=== PATIENT | female | born 1965 | race Caucasian/White ===

== ENCOUNTER 2018-04-01 13:34 | Outpatient (CLI) | payer OTHER | END 2018-04-01 13:35 | disposition home or self-care (01) | LOC: DTY/OP 13:34 | PROVIDERS: ATTEND Family Medicine | DX: E66.3 Overweight (principal) | CPT/HCPCS: 97802 ==

== ENCOUNTER 2018-11-03 17:01 | Outpatient (CLI) | payer BC ==
--- NOTE | 2018-11-03 17:26 | RAD ---
LEFT ANKLE RADIOGRAPHS THREE VIEWS: 11/03/18 PROVIDED CLINICAL HISTORY: Left ankle pain status post injury. FINDINGS: There is no evidence for fracture or other acute osseous abnormality. Plantar calcaneal enthesophyte formation is noted. Alignment appears anatomic. Joint spaces appears preserved. IMPRESSION: No evidence for an acute osseous abnormality. If there is persistent clinical concern, conservative m anagement and followup imaging are advised. POS: ESAU
== END 2018-11-03 17:02 | disposition home or self-care (01) ==
LOC: SCSRAD 17:01
PROVIDERS: ATTEND Family Medicine
DX: M25.572 Pain in left ankle and joints of left foot (principal)

== ENCOUNTER 2019-01-23 20:50 | Inpatient (IN) | payer BC ==
[2019-01-23 21:14] LABS: #Basophils 0.2 thou/uL (0.0-0.2); #Eosinphils 0.2 thou/uL (0.0-0.7); #Lymphocytes 2.8 thou/uL (1.20-3.40); #Monocytes 0.8 thou/uL (0.11-0.59); #Neutrophils 4.9 thou/uL (1.40-6.50); %Eosinophils 2.2 % (0.0-10.0); %Lymphocytes 31.5 % (21.0-51.0); %Monocytes 8.9 % (0.0-10.0); %Neutrophils 55.3 % (42.0-75.0); Hemoglobin 13.3 g/dL (12.0-16.0); Mean Corpuscular HGB CONC 33.7 g/dL (32.0-36.0); Mean Platelet Volume 7.4 fL (7.4-10.4); Platelet Count 248 thou/uL (130-400); RBC Distribution Width 12.7 % (11.5-14.5); Red Blood Cell (RBC) Count 4.61 mill/uL (4.20-5.40); White Blood Cell (WBC) Count 8.9 thou/uL (4.8-10.8)
[2019-01-23 21:29] LABS: ALT (SGPT) 702 U/L (8-55); AST (SGOT) 408 U/L (5-34); Albumin 4.2 g/dL (3.5-5.0); Alkaline Phosphatase 396 U/L (40-150); Anion Gap 13 mmol/L (10-20); BUN (Urea Nitrogen) 14 mg/dL (9.8-20.1); Bilirubin, Total 1.5 mg/dL (0.2-1.2); Calc. Creatinine Clearance 0 mL/min (70-130); Calcium 10.1 mg/dL (7.8-10.44); Carbon Dioxide 26 mmol/L (22-29); Chloride 104 mmol/L (98-107); Estimated GFR-MDRD 75; Globulin 3.2 g/dL (2.4-3.5); Glucose 113 mg/dL (70-105); Lipase 18 U/L (8-78); Potassium 4.3 mmol/L (3.5-5.1); Protein, Total 7.4 g/dL (6.0-8.3); Sodium 139 mmol/L (136-145)
[2019-01-23] MEDS ORDERED: Lidocaine Viscous Sol 2% 15 ml UD Cup ONE (21:31)
[2019-01-23] MEDS ORDERED: Famotidine/PF 20 mg/2ml Vial ONE (21:31)
[2019-01-23] MEDS ORDERED: Mag-Al Plus 1200 MG/1200 MG/120 MG/30 ML UDCUP ONE (21:31)
--- NOTE | 2019-01-23 22:43 | ULT ---
Right upper quadrant ultrasound: 01/23/2019 COMPARISON: None HISTORY: Pain, elevated liver function tests TECHNIQUE: Multiplanar grayscale sonographic imaging of the right upper quadrant provided. FINDINGS: Imaged pancreas grossly unremarkable. Body and tail obscured by bowel gas. Mild intrahepatic biliary dilatation is suspected. Multiple echogenic foci within the gallbladder not ed, evidence of cholelithiasis. No gallbladder wall thickening or pericholecystic fluid. The common bile duct is dilated, measuring approximately 8 mm. The right kidney measures 13 cm in craniocaudal d imension and demonstrates no stone, hydronephrosis, or mass. The lead welder reports a negative Wing's sign. IMPRESSION: Intrahepatic and extrahepatic biliary dilatation with cholelithiasis noted. No sonographi c evidence of cholecystitis. Findings are suspicious for biliary obstruction, which could be on the basis of nonvisualized choledocholithiasis. GI consultation suggested.
[2019-01-23] MEDS ORDERED: Piperacillin/Tazobactam 3.375 GM VIAL ONE ×2 (23:20→23:26)
[2019-01-23] MEDS ORDERED: Sodium Chloride 0.9% 100 ML ONE ×2 (23:20→23:26)
[2019-01-24] MEDS ORDERED: Ondansetron PF 4 MG/2 ML Vial IVP PRN ×2 (00:18→07:56)
[2019-01-24] MEDS ORDERED: Dextrose 5 %-0.45 % NaCl 1,000 ML IV SCH (00:18)
[2019-01-24 00:33] VITALS: BMI 37.0
[2019-01-24] MEDS: Morphine 2 MG/ML SYRINGE SLOW IVP PRN ×2 (01:31→06:04)
[2019-01-24 05:52] LABS: #Basophils 0.1 thou/uL (0.0-0.2); #Eosinphils 0.2 thou/uL (0.0-0.7); #Lymphocytes 2.5 thou/uL (1.20-3.40); #Monocytes 0.7 thou/uL (0.11-0.59); #Neutrophils 2.8 thou/uL (1.40-6.50); %Basophils 1.5 % (0.0-1.0); %Lymphocytes 39.7 % (21.0-51.0); %Monocytes 11.5 % (0.0-10.0); %Neutrophils 44.2 % (42.0-75.0); Hemoglobin 12.8 g/dL (12.0-16.0); Mean Corpuscular HGB CONC 32.6 g/dL (32.0-36.0); Mean Corpuscular Hemoglobin 28.9 pg (27.0-31.0); Mean Corpuscular Volume 88.7 fL (78.0-98.0); Mean Platelet Volume 7.7 fL (7.4-10.4); Platelet Count 232 thou/uL (130-400); RBC Distribution Width 12.6 % (11.5-14.5); Red Blood Cell (RBC) Count 4.44 mill/uL (4.20-5.40); White Blood Cell (WBC) Count 6.2 thou/uL (4.8-10.8)
[2019-01-24] MEDS ORDERED: Piperacillin/Tazobactam 3.375 GM in Sodium Chloride 0.9% 100 ML IVPB SCH (06:00)
[2019-01-24 06:21] LABS: ALT (SGPT) 856 U/L (8-55); AST (SGOT) 635 U/L (5-34); Albumin 3.9 g/dL (3.5-5.0); Alkaline Phosphatase 379 U/L (40-150); Anion Gap 12 mmol/L (10-20); BUN (Urea Nitrogen) 11 mg/dL (9.8-20.1); Bilirubin, Total 1.9 mg/dL (0.2-1.2); Calc. Creatinine Clearance 138 mL/min (70-130); Calcium 9.6 mg/dL (7.8-10.44); Carbon Dioxide 26 mmol/L (22-29); Chloride 106 mmol/L (98-107); Estimated GFR-MDRD 77; Glucose 120 mg/dL (70-105); Lipase 9 U/L (8-78); Protein, Total 6.9 g/dL (6.0-8.3); Sodium 140 mmol/L (136-145)
[2019-01-24] MEDS ORDERED: Morphine 4 MG/ML VIAL SLOW IVP PRN (07:57)
[2019-01-24] MEDS ORDERED: Morphine 2 MG/ML SYRINGE SLOW IVP PRN (08:38)
[2019-01-24] MEDS: D5 1/2 NS w/20 mEq KCL 1,000 ML IV SCH ×2 (09:50→18:52)
[2019-01-24] MEDS ORDERED: Fentanyl 100 MCG/2 ML VIAL ONE (11:32)
[2019-01-24] MEDS: Piperacillin/Tazobactam 3.375 GM in Sodium Chloride 0.9% 100 ML IVPB SCH ×2 (12:03→18:52)
[2019-01-24] MEDS ORDERED: Indomethacin 50 MG SUPP PR SCH (12:30)
[2019-01-24] MEDS ORDERED: Piperacillin/Tazobactam 3.375 GM VIAL ONE (12:33)
[2019-01-24] MEDS ORDERED: Sodium Chloride 0.9% 100 ML ONE (12:33)
[2019-01-24] MEDS ORDERED: Iothalamate Meglumine 60% 50 ML VIAL FS ONE (14:22)
[2019-01-24] MEDS ORDERED: Indomethacin 50 MG SUPP ONE (14:22)
--- NOTE | 2019-01-24 16:02 | CON ---
DATE OF CONSULTATION: 01/24/2019 REASON FOR CONSULTATION: Choledocholithiasis. CONSULTING PHYSICIAN: Jeremias Gilliam MD HISTORY OF PRESENT ILLNESS: The patient is a 53-year-old female with past medical history of impaired fasting glucose, hypothyroidism, hyperlipidemia, and hypertension, presenting with complaints of midepigastric abdominal pain. She states that she was in her usual state of health until approximately 2 weeks ago when she began to have intermittent occurrences of a cramping/pressure-type pain located in the midepigastrium, would radiate to the lower substernal chest in addition to the just to right and left of midline in the epigastrium. The pain was intermittent and would occur roughly 1 to 2 times per day and would usually occur within 30 to 45 minutes after meal ingestion, and follow a crescendo-decrescendo pattern. The pain itself would reach a severity of 8 to 9/10 and was associated with increased nausea and vomiting x3 over the last week. Otherwise, she denied any fevers, chills, GI bleeding, dysphagia, odynophagia, abdominal distention/abdominal swelling or lower extremity edema. However, yesterday when the pain returns in the morning, it did not freddie like it had been in the past, prompting her to seek healthcare admission in the [facility] ER. While in the ER, she was noted to have significantly elevated LFTs as well as dilation of her common bile duct suspicious for choledocholithiasis and was ultimately admitted to the hospital for evaluation. REVIEW OF SYSTEMS: A 10-category review of systems was obtained with all responses negative, except for the pertinent positives as listed in HPI. PAST MEDICAL HISTORY: As per HPI. PAST SURGICAL HISTORY: Appendectomy, , and hysterectomy. FAMILY HISTORY: Denies any GI malignancies. SOCIAL HISTORY: Denies any tobacco, alcohol, or illicit drug use. OUTPATIENT MEDICATIONS: Reviewed. ALLERGIES: NO KNOWN DRUG ALLERGIES. PHYSICAL EXAMINATION: VITAL SIGNS: Temperature 97.6, pulse 46, blood pressure 112/72, respiratory rate 14, saturating 97% on room air. GENERAL: The patient was lying in bed, in no acute distress. Alert and oriented x4. HEENT: Normocephalic, atraumatic. NECK: Supple. No JVD or scleral icterus noted. CARDIOVASCULAR: Bradycardic rate, but regular rhythm. No discernible murmurs, gallops, or rubs. RESPIRATORY: Clear to auscultation bilaterally with no discernible wheezes or rales. ABDOMEN: Normoactive bowel sounds. Soft, nondistended. Tenderness to palpation in the midepigastric and periumbilical regions. EXTREMITIES: No cyanosis, clubbing, or edema. LABORATORY DATA: CBC with a white blood cell count of 6.2, hemoglobin 12.8, hematocrit 39.3, platelets 232. Chemistry with a sodium of 140, potassium 4, chloride 106, CO2 of 26, BUN 11, creatinine 0.79, glucose 120, AST 635, ALT 856, alkaline phosphatase 379, and total bilirubin 1.9. IMAGING DATA: Right upper quadrant ultrasound was obtained on January 23, 2019, which showed mild intrahepatic dilation as well as dilation of the common bile duct to 8 mm in size. Multiple gallstones were seen within the gallbladder, but no evidence of acute cholecystitis. ASSESSMENT AND PLAN: The patient is a 53-year-old female, presenting with past medical history of impaired fasting glucose, hypothyroidism, hyperlipidemia, and hypertension, presenting with choledocholithiasis. Choledocholithiasis: The patient is presenting with the acute onset of midepigastric abdominal pain that has been intermittently occurring over the last two weeks. However, yesterday she experienced the pain and it had not abated until being evaluated here at . On evaluation, the patient has an obstructive-type pattern on her LFTs and when coupled with intra and extrahepatic dilatation, is consistent with the presence of choledocholithiasis. RECOMMENDATIONS: 1. Would keep the patient n.p.o. in anticipation for ERCP later today. 2. We will perform ERCP later for stone extraction. 3. Would recommend General Surgery evaluation and cholecystectomy during this admission, if choledocholithiasis is present. 4. Pain control per primary team. Further recommendations to follow ERCP. Please call with any questions. Job ID: [id number]
--- NOTE | 2019-01-24 16:11 | RAD ---
2 intraoperative ERCP images. HISTORY: Cholelithiasis. FINDINGS: Catheterization and injection of the common bile duct performed. No definite evidence of biliary lesi ons or evidence of definite obstruction seen. No evidence of intrahepatic biliary dilatation seen. IMPRESSION: No evidence of intrahepatic biliary dilatation or obstruction seen. Transcribed Date/Time: 01/24/2019 4:16 PM
[2019-01-24] MEDS ORDERED: Rocuronium Bromide 10 MG/ML (10ML VIAL) ONE (16:33)
[2019-01-24] MEDS ORDERED: Ondansetron PF 4 MG/2 ML Vial ONE (16:33)
[2019-01-24] MEDS ORDERED: Dexamethasone 20 MG/5 ML VIAL ONE (16:33)
[2019-01-24] MEDS ORDERED: PROPOFOL 200 MG/20 ML VIAL ONE (16:33)
[2019-01-24] MEDS ORDERED: Lidocaine 1% PF 5 ML VIAL ONE (16:33)
[2019-01-24] MEDS ORDERED: Glycopyrrolate 0.2 MG/ML 5 ML SYRINGE ONE (16:33)
--- NOTE | 2019-01-24 16:41 | HP ---
CHIEF COMPLAINT: Abdominal pain. HISTORY: Ms. Betancourt is a 53-year-old woman who presented to the ER with a 2-week history of abdominal pain, which became unrelenting yesterday. She states that she had attributed it to changes in her diet and activities and that the pain was in the epigastrium and was crampy in nature. Yesterday, it came on and it would not go away. She had nausea and vomiting associated with the pain, but no fevers or chills. She is still having pain this morning, although it is decreased in intensity. It waxes and wanes in severity. The pain has not been clearly correlated with diet activities or time of day. Nothing that she has tried to relieve the pain has helped. PAST MEDICAL HISTORY: Hypothyroidism, prediabetes, hyperlipidemia. Hypertension resolved after diet and activity changes and weight loss. OUTPATIENT MEDICATIONS: 1. Atorvastatin. 2. . 3. Levothyroxine. 4. Montelukast. 5. Centrum Silver. PAST SURGICAL HISTORY: Multiple C-sections, hysterectomy with incidental appendectomy. SOCIAL HISTORY: The patient does not smoke, drink, or use illicit. DRUGS ALLERGIES: She has no known drug allergies. REVIEW OF SYSTEMS: Ten system review of systems is negative except per HPI. PHYSICAL EXAMINATION: VITAL SIGNS: The patient has been afebrile since admission. Heart rate is in the 45-65 range, respiratory rate 14, 97% saturated on room air, blood pressure 112/72. GENERAL: Reveals a pleasant woman, in no acute distress. She is not jaundiced or icteric. She is not flushed or toxic in appearance. HEENT: Unremarkable except for thyromegaly without any palpable nodules. No lymphadenopathy. HEART: Regular in its rate and rhythm without murmurs, rubs, or gallops. LUNGS: Clear to auscultation bilaterally. ABDOMEN: Soft and nondistended. She has a healed Pfannenstiel incision. No palpable masses or hernias. Mild tenderness to palpation just to the right of the epigastrium. No guarding, rigidity, or rebound. EXTREMITIES: Warm, well perfused without edema. NEURO: No focal deficits. PSYCHIATRIC: Alert, oriented and appropriate. IMAGING: Gallbladder ultrasound revealed intra and extrahepatic biliary dilatation, stones in the gallbladder, but no gallbladder wall thickening or pericholecystic fluid and no Wing sign. LABORATORY DATA: White count is normal. No left shift. Hematocrit 39, platelets 232. Electrolytes are unremarkable. Bilirubin is 1.9, AST 635, ALT 856, and alkaline phosphatase 379. Bilirubin, AST and ALT have all gone up overnight. ASSESSMENT: Cholelithiasis and likely choledocholithiasis. I have consulted Dr. Rogers of Gastroenterology to evaluate the patient as she may need a preoperative endoscopic retrograde cholangiopancreatography and if he decides to proceed with Endoscopic retrograde cholangiopancreatography today I will put her on the schedule for laparoscopic cholecystectomy tomorrow. The procedure of laparoscopic cholecystectomy and its inherent risks were discussed with the patient and her . Each risks include, but are not limited to bleeding, infection, risks of anesthesia, damage to nearby structures including bowel, liver and bile duct, need for open surgery, and need for other procedures. They understand and accept these risks and wished to proceed. I will await Dr. Rogers's evaluation. Job ID: [id number]
[2019-01-24] MEDS ORDERED: Atropine Sulfate 1 mg/10 ml Syringe ONE (16:59)
[2019-01-24] MEDS ORDERED: Atropine Sulfate 1 mg/10 ml Syringe IVP PRN (18:40)
[2019-01-24 20:02] LABS: Free T4 (Free Thyroxine) 1.17 ng/dL (0.70-1.48)
--- NOTE | 2019-01-24 22:17 | OP ---
DATE OF PROCEDURE: 01/24/2019 PROCEDURE PERFORMED: Endoscopic retrograde cholangiopancreatography with sphincterotomy and biliary calculi extraction. INDICATION FOR PROCEDURE: Choledocholithiasis. DESCRIPTION OF PROCEDURE: After the risks and benefits of the procedure were explained to the patient including risks of bleeding, infection, perforation, reactions to anesthesia, aspiration, pancreatitis and/or pain, informed consent was obtained. The patient was then taken to the endoscopy suite, where general anesthesia was administered with endotracheal tube intubation. Once the patient was intubated and sedated she was maneuvered into the prone position in preparation for the ERCP. Once in adequate position and with the fluoroscopy arm in place, the standard duodenoscope was introduced into the mouth with intubation of the esophagus, stomach, and the proximal small intestine with the findings listed below. The patient tolerated the procedure well with no immediate perioperative complications. Upon completion of the procedure, all equipment was removed from the patient and she was transferred to PACU in satisfactory condition. ESOPHAGOGASTRODUODENOSCOPY FINDINGS: Of the limited views obtained during the EGD portion of this examination, normal-appearing mucosa was seen in the esophagus, stomach, and the proximal small intestines. There was no evidence of erosions, ulcerations, mass, lesions, or active/recent bleeding. ENDOSCOPIC RETROGRADE CHOLANGIOPANCREATOGRAPHY FINDINGS: The ampulla was easily identified within the second portion of the duodenum with no associated erythema, purulence or ulceration. Using a 5 mm sphincterotome, the ampulla was then cannulated with installation of contrast dye showing filling defects within the distal common bile duct. Using the sphincterotome, a sphincterotomy was then performed with good hemostasis achieved at the end of this maneuver. During the course of the sphincterotomy, a 4 mm yellow pigmented stone was extruded from the common bile duct. Once the sphincterotomy was completed, the sphincterotome was exchanged for a 9 to 12 mm balloon using exchange technique over guidewire. Once the balloon was in adequate position, multiple successive balloon sweeps were performed at both 9 mm and 12 mm with another 3-4 mm yellow pigmented stone extracted as well as numerous bits of stone debris measuring approximately 1 mm in size. At the conclusion of the procedure, an occlusion cholangiogram was performed with good filling of the common bile duct, common hepatic, cystic duct and intrahepatic biliary tree and good drainage noted also on fluoroscopy. All equipment was then withdrawn with removal of the duodenoscope. IMPRESSION: 1. Choledocholithiasis with two 3-4 mm yellow pigmented stones extracted status post sphincterotomy and balloon extraction. 2. Multiple 1 mm yellow pigmented debris/stones also retrieved. RECOMMENDATIONS: 1. I would continue to trend the patient's LFTs tomorrow to monitor her response to treatment. 2. Continue to monitor clinically for signs of post ERCP pancreatitis. 3. Can place the patient on a clear liquid diet today, but would be n.p.o. at midnight in preparation for cholecystectomy tomorrow. 4. Recommend cholecystectomy within this hospitalization to prevent any further recurrences of choledocholithiasis. We will continue to follow. Please call with any questions. Job ID: [id number]
[2019-01-25] MEDS: Piperacillin/Tazobactam 3.375 GM in Sodium Chloride 0.9% 100 ML IVPB SCH ×6 (00:30→23:52)
--- NOTE | 2019-01-25 01:19 | CON ---
DATE OF CONSULTATION: 01/24/2019 PRIMARY CARE PHYSICIAN: Earl Joel MD. REASON FOR CONSULTATION: Bradycardia. HISTORY OF PRESENT ILLNESS: This is a 53-year-old female patient of Earl Joel, with a history of hyperlipidemia, hypothyroidism, allergies, prediabetes, and obesity, who presented to the emergency department with 2 weeks of worsening abdominal pain. Last night, her pain became much more unbearable and she presented to the emergency department for evaluation. She was seen in the emergency department, found to have cholelithiasis and choledocholithiasis with obstructive symptoms and she was admitted by Dr. Soliman and I saw the patient in evaluation and due to the biliary dilatation, stones in the gallbladder, recommended admission and GI evaluation. Dr. Rogers saw the patient in evaluation and performed the ERCP today. Following that, she was found to be more bradycardic and she was transferred to Telemetry at that time for closer monitoring. We are now consulted for her bradycardia. The patient was nonsymptomatic. She denied chest pain, denied lightheadedness. She actually states that she is feeling much better after the ERCP with no pain at this time. PAST MEDICAL HISTORY: Hypothyroidism, prediabetes, hyperlipidemia, hypertension, and obesity. MEDICATIONS: Include; 1. Atorvastatin 10 mg daily. 2. Belviq 10 mg b.i.d. 3. Levothyroxine 50 mcg daily. 4. Montelukast 10 mg daily. 5. Multivitamin 1 daily. PAST SURGICAL HISTORY: D and C, history of appendectomy, history of , and history of hysterectomy. ALLERGIES: NONE KNOWN. SOCIAL HISTORY: No alcohol. No drug use. No smoking. FAMILY HISTORY: Noncontributory. REVIEW OF SYSTEMS: CONSTITUTIONAL: As per the history of present illness, she denies any recent fevers, chills, or recent upper respiratory symptoms. HEENT: No headache, visual or hearing changes. CARDIAC: Denies chest pain, shortness of breath, or palpitations. PULMONARY: Denies cough or hemoptysis. GI: As per the history of present illness. : No dysuria or hematuria. NEUROLOGIC: No weakness, seizures, or syncope. PHYSICAL EXAMINATION: VITAL SIGNS: Temperature 97.9, pulse of 43 to 60, respirations 16 to 18, blood pressure 131/69, pulse ox is 98% on room air. GENERAL: She is awake and alert. She is pleasant and comfortable in bed. Mucosa is moist. NECK: Supple. HEART: Bradycardic. LUNGS: Clear. No wheeze, rales, or rhonchi. ABDOMEN: Soft. She has some right upper quadrant tenderness, but no rebound or guarding. Negative Wing sign. Otherwise, soft. EXTREMITIES: No clubbing, cyanosis, or edema. 2+ peripheral pulses bilaterally. LABORATORY DATA: Sodium 140, potassium 4.0, chloride 106, CO2 of 26, BUN and creatinine are 11 and 0.79, GFR of 77, serum glucose of 120, total bilirubin 1.9, AST of 635, ALT of 856, alkaline phosphatase of 379, lipase of 9. T3 and T4 were normal. White blood cell count 6200, hemoglobin and hematocrit 12.8 and 39.3, and platelets of 232. IMAGING STUDIES: EKG showed bradycardia. ASSESSMENT: This is a 53-year-old female patient, with hypothyroidism, hyperlipidemia, obesity, admitted with cholelithiasis and choledocholithiasis, now status post endoscopic retrograde cholangiopancreatography and now with postoperative bradycardia. PLAN: Agree with telemetry monitoring. We will check EKG and echocardiogram in the morning, likely secondary to anesthesia reaction. We will try to limit narcotic analgesia if possible. If she becomes symptomatic, we will consult Cardiology for evaluation. Job ID: [id number]
[2019-01-25] MEDS: D5 1/2 NS w/20 mEq KCL 1,000 ML IV SCH ×4 (02:16→23:51)
[2019-01-25] MEDS: Levothyroxine Sodium 50 MCG TAB PO SCH ×2 (06:13→09:27)
[2019-01-25 06:47] LABS: ALT (SGPT) 603 U/L (8-55); AST (SGOT) 206 U/L (5-34); Albumin 3.9 g/dL (3.5-5.0); Alkaline Phosphatase 352 U/L (40-150); Anion Gap 10 mmol/L (10-20); BUN (Urea Nitrogen) 9 mg/dL (9.8-20.1); Bilirubin, Total 1.7 mg/dL (0.2-1.2); Calc. Creatinine Clearance 145 mL/min (70-130); Calcium 9.4 mg/dL (7.8-10.44); Carbon Dioxide 26 mmol/L (22-29); Chloride 106 mmol/L (98-107); Estimated GFR-MDRD 78; Globulin 2.9 g/dL (2.4-3.5); Glucose 151 mg/dL (70-105); Lipase 492 U/L (8-78); Potassium 4.2 mmol/L (3.5-5.1); Protein, Total 6.8 g/dL (6.0-8.3); Sodium 138 mmol/L (136-145)
[2019-01-25] MEDS: Montelukast Sodium 10 mg Tablet PO SCH (10:01)
--- NOTE | 2019-01-25 10:33 | PRG ---
DATE OF SERVICE: 01/25/2019 REASON FOR CONSULTATION: Choledocholithiasis. SUBJECTIVE: The patient underwent ERCP yesterday afternoon with successful extraction of two yellow pigmented stones as well as numerous bits of debris. Since the procedure, she says she has had complete resolution of her abdominal pain and she has not had any other problems since. No acute events or problems overnight. Currently, she denies any nausea, vomiting, fevers, chills, shortness of breath, abdominal pain, or GI bleeding. However, she was noted to have bradycardia and yesterday, and is subsequently undergoing a cardiac workup for this condition. OBJECTIVE: VITAL SIGNS: Temperature 97.8, pulse 41, blood pressure 118/65, respiratory rate 20, and saturating 95% on room air. GENERAL: The patient was lying in bed, in no acute distress. Alert and oriented x4. CARDIOVASCULAR: Bradycardic rate, but regular rhythm. RESPIRATORY: Clear to auscultation bilaterally. ABDOMEN: Normoactive bowel sounds. Soft and nondistended. Very minimal tenderness to deep palpation in the midepigastric region. EXTREMITIES: No cyanosis, clubbing, or edema. LABORATORY DATA: Chemistry with a sodium of 138, potassium 4.2, chloride 106, CO2 of 26, BUN 9, creatinine 0.78, glucose 151, AST 206, ALT 603, alkaline phosphatase 352, total bilirubin 1.7, and lipase 492. IMAGING DATA: The patient underwent ERCP on January 24, 2019, which showed the presence of filling defects within the distal common bile duct. Sphincterotomy was then performed with successive balloon sweeps yielding approximately two 3 to 5 mm yellow pigmented stones as well as small stone debris. At the end of the procedure, the occlusion cholangiogram did not show any additional filling defects. ASSESSMENT AND PLAN: The patient is a 53-year-old female, presenting with a past medical history of impaired fasting glucose, hypothyroidism, hyperlipidemia, and hypertension, presenting with choledocholithiasis. Choledocholithiasis: The patient initially presented with acute onset of midepigastric abdominal pain that had been occurring intermittently over the last two weeks, but worsening over the last 24 to 48 hours prior to admission. On evaluation in the ER, she was noted to have significantly elevated LFTs as well as imaging showing intra and extrahepatic biliary dilatation. Subsequently, she underwent endoscopic retrograde cholangiopancreatography on January 24, 2019, with the extraction of two 3 to 5 mm yellow pigmented stones as well as some yellow pigmented stone debris. Currently, doing well with complete resolution of her abdominal pain, despite an elevated lipase this morning. The elevated lipase may be more due to the instrumentation within the region as opposed to overt pancreatitis as she is not clinically exhibiting evidence of pancreatitis at this time. Recommendations; 1. We would continue to monitor the patient with trending of her LFTs to confirm response to treatment. 2. At this point, she does not clinically have evidence of acute pancreatitis with no further management indicated for this condition at this time. 3. General Surgery to decide on timing for cholecystectomy in light of acute bradycardia and Cardiology workup. We will sign off at this time. Please call with any questions. Job ID: [id number] MTDD
--- NOTE | 2019-01-25 11:26 | PRG ---
DATE OF SERVICE: SUBJECTIVE: Ms. Betancourt is resting well. She has no medical complaints. OBJECTIVE: VITAL SIGNS: Temperature 97.8, BP 118/65, O2 saturation 95%. LUNGS: Clear. HEART: Reveals a regular rate and rhythm. No murmur, gallops, or rubs. LABORATORY DATA: Sodium 138, potassium 4.2, chloride 106, CO2 of 26, BUN 9, creatinine 0.78. TSH is 0.657. T3, T4 normal. IMPRESSION: Cholelithiasis. The patient states she is feeling much better. She has no other medical complaints otherwise. She had episode of asymptomatic bradycardia post procedure. PLAN: From my standpoint, the patient is medically stable. For completeness, we will get Cardiology consult. Job ID: [id number]
[2019-01-25] MEDS ORDERED: Glycopyrrolate 0.2 MG/ML 5 ML SYRINGE ONE (12:07)
[2019-01-25] MEDS ORDERED: Rocuronium Bromide 10 MG/ML (10ML VIAL) ONE (12:07)
[2019-01-25] MEDS ORDERED: PROPOFOL 200 MG/20 ML VIAL ONE (12:07)
[2019-01-25] MEDS ORDERED: ePHEDrine 50 MG/ML VIAL ONE (12:07)
[2019-01-25] MEDS ORDERED: Ondansetron PF 4 MG/2 ML Vial ONE (12:07)
[2019-01-25] MEDS ORDERED: Dexamethasone 20 MG/5 ML VIAL ONE (12:07)
[2019-01-25] MEDS ORDERED: Lidocaine 1% PF 5 ML VIAL ONE (12:07)
--- NOTE | 2019-01-25 14:49 | PDOC.GSPN ---
Surgery Progress Note: Subj - Subjective Narrative: Patient is doing well today. Her abdominal pain completely resolved after her ERCP. She denies any shortness of breath, chest pain, lightheadedness, or dizziness. By report she had a little lightheadedness when her heart rate was in the 30s after her ERCP, but she doesn't remember that. She has been seen by cardiology and had an echocardiogram and they feel that she is appropriate to proceed with laparoscopic cholecystectomy. Heart rate is slow but regular and her blood pressure is good. No fevers. Abdomen is soft nontender and nondistended. Her lipase is very minimally elevated but she does not have any nausea or pain. LFTs are coming down. Assessment/plan: Status post ERCP and stone extraction doing well. Plan is for laparoscopic cholecystectomy later today. Inherent risks of surgery were discussed and all of her questions were answered. Surgery Progress Note: Obj - Vital signs Vital signs: Vital Signs - Most Recent Temp Pulse Resp BP Pulse Ox 98.7 F 42 L 18 132/72 97 01/25/19 12:00 01/25/19 12:00 01/25/19 12:00 01/25/19 12:00 01/25/19 12:00 Surgery Progress Note: Results - Labs Result Diagrams: 01/24/19 05:12 01/25/19 05:43 Lab results: Laboratory Results - last 24 hr 01/25/19 01/25/19 05:43 05:43 Sodium 138 Potassium 4.2 Chloride 106 Carbon Dioxide 26 Anion Gap 10 BUN 9 L Creatinine 0.78 Estimated GFR (MDRD) 78 Glucose 151 H Calcium 9.4 Total Bilirubin 1.7 H AST 206 H ALT 603 H Alkaline Phosphatase 352 H Serum Total Protein 6.8 Albumin 3.9 Globulin 2.9 Albumin/Globulin Ratio 1.3 Lipase 492 H TSH 3rd Generation 0.6752
[2019-01-25] MEDS ORDERED: Bupivacaine/Epinephrine 0.25% 30 ML VIAL ONE (16:36)
[2019-01-25] MEDS ORDERED: Fentanyl 100 MCG/2 ML VIAL ONE ×3 (17:34→19:52)
--- NOTE | 2019-01-25 20:10 | PDOC.OP ---
Operative Note - Operative Note Operative Note: DATE OF PROCEDURE: 01/25/2019 PROCEDURES: Laparoscopic cholecystectomy. SURGEON: Bianka Soliman M.D. PREOPERATIVE DIAGNOSIS: Cholelithiasis, status post ERCP and stone extraction for choledocholithiasis POSTOPERATIVE DIAGNOSIS: Cholelithiasis, status post ERCP and stone extraction for choledocholithiasis FINDINGS: White walled gallbladder with multiple stones. Large cystic duct Endolooped. HISTORY: Patient with symptoms of biliary colic and elevated LFTs and dilated common bile duct. She was felt to have choledocholithiasis and underwent ERCP with stone extraction.. Laparoscopic cholecystectomy was recommended for prevention of future episodes. Preoperative LFTs were trending down post-ERCP. She did have significant bradycardia after her ERCP, so she was given Robinul before insufflation to prevent bradycardia. Her heart rate remained normal throughout the case. PROCEDURE: After informed consent was obtained and appropriate preoperative antibiotics were administered, the patient was taken to the operating room and placed in the supine position and general endotracheal anesthesia was administered. The stomach was decompressed with an OG tube and the abdomen was prepped and draped in standard sterile fashion. Local anesthesia was infused to the skin and subcutaneous tissues at the umbilical level. A transverse skin incision was made. The fascia was elevated and a Veress needle was placed into the abdominal cavity without difficulty. Opening pressure was less than 5 and carbon dioxide gas easily insufflated to an intra-abdominal pressure of 15, which the patient tolerated well. The Veress needle was withdrawn and a Bogard port advanced under direct vision. The abdominal cavity was carefully examined. There was no evidence of Veress needle or of trocar injury. Local anesthesia was infused to the skin and subcutaneous tissues at the epigastric, right upper quadrant, and right lateral abdominal sites and trocars were placed under direct vision of the laparoscope. The fundus of the gallbladder was grasped and retracted superiorly. The infundibulum was grasped and retracted laterally. The serosa was stripped inferiorly at the level of the neck of the gallbladder exposing the cystic duct and artery which were traced clearly to their insertion in the gallbladder. Critical view of safety was obtained and the cystic duct and artery were clipped and divided between clips. The cystic duct was large, and the clips barely reached all the way across so an Endoloop was placed below the clips and secured. The gallbladder was then dissected free of the gallbladder bed using hook electrocautery. Prior to complete removal of the gallbladder from the gallbladder bed, the area of the cystic duct and artery stumps was examined. The clips were in good position completely across these structures and there was no bleeding and no leakage of bile. The gallbladder was then placed into an EndoCatch bag and drawn out through the epigastric incision after crushing and removing multiple stones. The epigastric trocar was replaced and the operative site easily irrigated to clear. There was no significant bleeding or spillage of bile. The epigastric trocar was removed and the fascia closed under direct laparoscopic vision with a 0 Vicryl suture on a GraNee needle in a [id number] manner with excellent technical result. The right upper quadrant and right lateral abdominal trocars were removed and hemostasis verified. Carbon dioxide gas was allowed to desufflate through the umbilical trocar which was then removed. The skin incisions were closed with 4-0 subcuticular Monocryl sutures and Dermabond dressings were placed. The patient was extubated and taken to the recovery room in good condition. There were no complications. ESTIMATED BLOOD LOSS: Minimal. SPECIMEN : Gallbladder and contents.
--- NOTE | 2019-01-25 20:18 | CON ---
DATE OF CONSULTATION: HISTORY OF PRESENT ILLNESS: This is a 53-year-old female, who was admitted with epigastric discomfort. For the past 2 to 3 weeks, she has had multiple episodes of epigastric pain, lasting 30 to 45 minutes, sometimes associated with nausea and vomiting. She was found to have cholelithiasis and choledocholithiasis with obstructive symptoms and underwent ERCP by Dr. Rogers. Two stones removed as well as drainage of sludge. She has has significant improvement in her symptoms. After the procedure, she apparently became bradycardiac and was given atropine 0.2 mg IV. There are no rhythm strips from that time. It is unknown exactly how bradycardic she became. Since being on telemetry, she has had episodes of heart rates as low as 39 per minute. The patient denies ever having any lightheadedness, dizziness, or syncopal episodes. She exercises very vigorously over the last year up to 1 hour several times per week. She denies any chest discomfort or shortness of breath with her exercise program. She has lost a significant amount of weight doing this. PAST MEDICAL HISTORY: Hypertension, hyperlipidemia, hypothyroidism, prediabetes , obesity. MEDICATIONS: 1. Belviq 10 mg b.i.d. 2. Levothyroxine 50 mcg daily. 3. Montelukast 10 mg daily. 4. Multivitamin daily. 5. Atorvastatin 10 mg daily. ALLERGIES: NONE. PAST SURGICAL HISTORY: D and C, appendectomy, , hysterectomy. SOCIAL HISTORY: She does not smoke or drink. FAMILY HISTORY: Unremarkable. REVIEW OF SYSTEMS: A 10-point review of systems is otherwise unremarkable. PHYSICAL EXAMINATION: VITAL SIGNS: Blood pressure 136/68, pulse of 40, sinus rhythm on the monitor. HEENT: PERRL. NECK: Supple. CHEST: Clear. CARDIAC: S1 and S2 normal without any S3, S4, or murmurs. ABDOMEN: Normal bowel sounds with mild epigastric tenderness. EXTREMITIES: Reveal no clubbing, cyanosis, or edema. NEUROLOGIC: Grossly intact. LABORATORY DATA: EKG reveals marked sinus bradycardia with a rate of 39 per minute. No acute changes. CBC is normal. TSH, free T4, and free T3 are normal. Sodium 138, potassium 4.2 , chloride 106, carbon dioxide 26, BUN 9, creatinine 0.78, bilirubin is up to 1.9 , AST up to 635, ALT 856, alkaline phosphatase 379. Troponin I is normal. IMPRESSION: 1. Asymptomatic bradycardia. She has a resting heart rate in the upper 30s, lower 40s, and is asymptomatic. She does exercise regularly. She certainly may have had a vasovagal episode after the sphincterotomy that could have led to more progressive bradycardia. 2. Episode of ventricular bigeminy, asymptomatic. 3. Hypertension. 4. Prediabetes. 5. Hypercholesterolemia. 6. Obesity. PLAN: Ms. Betancourt has asymptomatic sinus bradycardia and no treatment is needed. If she does become significantly bradycardic during the surgery, atropine may again be given. She appears to be an acceptable risk to proceed with general anesthesia and laparoscopic cholecystectomy. Job ID: [id number] [facility]
[2019-01-25] MEDS ORDERED: HYDROcodone/Acetaminophen 5/325 mg Tablet PO PRN (23:20)
[2019-01-25] MEDS ORDERED: Ibuprofen 200 MG TAB PO PRN ×2 (23:21→23:24)
[2019-01-25] MEDS ORDERED: Acetaminophen 325 MG TAB PO PRN ×2 (23:21)
[2019-01-25] MEDS ORDERED: Ibuprofen 600 MG TAB PO PRN (23:24)
[2019-01-25] MEDS: HYDROcodone/Acetaminophen 5/325 mg Tablet PO PRN (23:52)
[2019-01-26] MEDS: Piperacillin/Tazobactam 3.375 GM in Sodium Chloride 0.9% 100 ML IVPB SCH ×4 (05:16→23:37)
[2019-01-26] MEDS: Levothyroxine Sodium 50 MCG TAB PO SCH (05:16)
[2019-01-26] MEDS: HYDROcodone/Acetaminophen 5/325 mg Tablet PO PRN (05:20)
[2019-01-26 07:15] LABS: ALT (SGPT) 417 U/L (8-55); AST (SGOT) 89 U/L (5-34); Albumin 3.8 g/dL (3.5-5.0); Alkaline Phosphatase 280 U/L (40-150); Anion Gap 12 mmol/L (10-20); BUN (Urea Nitrogen) 8 mg/dL (9.8-20.1); Bilirubin, Total 1.1 mg/dL (0.2-1.2); Calc. Creatinine Clearance 156 mL/min (70-130); Calcium 9.1 mg/dL (7.8-10.44); Carbon Dioxide 22 mmol/L (22-29); Chloride 108 mmol/L (98-107); Estimated GFR-MDRD 85; Globulin 2.9 g/dL (2.4-3.5); Glucose 164 mg/dL (70-105); Lipase 29 U/L (8-78); Potassium 4.1 mmol/L (3.5-5.1); Protein, Total 6.7 g/dL (6.0-8.3); Sodium 138 mmol/L (136-145)
[2019-01-26] MEDS: Montelukast Sodium 10 mg Tablet PO SCH (08:43)
[2019-01-26] MEDS: D5 1/2 NS w/20 mEq KCL 1,000 ML IV SCH ×3 (11:00→20:57)
[2019-01-26] MEDS: Cyclobenzaprine 10 MG TAB PO PRN ×2 (12:38→19:38)
[2019-01-26] MEDS ORDERED: traMADol HCl 50 MG TAB PO PRN (15:30)
--- NOTE | 2019-01-26 16:14 | PDOC.GSPN ---
Surgery Progress Note: Subj - Subjective Narrative: Patient is feeling okay right now. She did have an episode of severe crampy upper abdominal pain earlier today but this has resolved. She was given [place] and Flexeril, and is not sure which one helped. No nausea or vomiting. She has tolerated ice and water but had not yet ordered off of the clear liquid diet when I saw her. She doesn't like the way the [place] makes her feel. It causes her to itch terribly and gave her very strange dreams. We will switch her to tramadol and see if she tolerates this better. Her labs look better and her vitals are fine, although her heart rate is back down to its very low but normal for her rate. She has appropriate. Incisional tenderness and her incisions looked good. Assessment/plan: Status post laparoscopic cholecystectomy doing well except for an episode of crampy upper abdominal pain which was fairly severe. I suspect that this was muscle spasms related to her surgery and probably responded to Flexeril. She hadn't taken any pain medicine since last night because of the way that the [place] made her feel, so we'll try her on tramadol instead. If she doesn't have any further episodes and tolerates her clear liquid diet, she could potentially be discharged later today. Otherwise, I expect that she will be ready for discharge tomorrow. Surgery Progress Note: Obj - Vital signs Vital signs: Vital Signs - Most Recent Temp Pulse Resp BP Pulse Ox 97.7 F 47 L 18 129/79 97 01/26/19 08:47 01/26/19 16:08 01/26/19 16:08 01/26/19 16:08 01/26/19 08:47 Surgery Progress Note: Results - Labs Result Diagrams: 01/24/19 05:12 01/26/19 06:05 Lab results: Laboratory Results - last 24 hr 01/26/19 06:05 Sodium 138 Potassium 4.1 Chloride 108 H Carbon Dioxide 22 Anion Gap 12 BUN 8 L Creatinine 0.72 Estimated GFR (MDRD) 85 Glucose 164 H Calcium 9.1 Total Bilirubin 1.1 AST 89 H ALT 417 H Alkaline Phosphatase 280 H Serum Total Protein 6.7 Albumin 3.8 Globulin 2.9 Albumin/Globulin Ratio 1.3 Lipase 29
[2019-01-26] MEDS: traMADol HCl 50 MG TAB PO PRN (19:38)
[2019-01-27] MEDS: Cyclobenzaprine 10 MG TAB PO PRN ×2 (03:18→10:15)
[2019-01-27] MEDS: traMADol HCl 50 MG TAB PO PRN ×2 (03:19→10:15)
[2019-01-27] MEDS: Piperacillin/Tazobactam 3.375 GM in Sodium Chloride 0.9% 100 ML IVPB SCH (05:20)
[2019-01-27] MEDS: Levothyroxine Sodium 50 MCG TAB PO SCH (05:20)
[2019-01-27 08:34] VITALS: BP 129/77; TEMP 97.9
[2019-01-27] MEDS: Montelukast Sodium 10 mg Tablet PO SCH (10:06)
--- NOTE | 2019-01-28 00:50 | DIS ---
DATE OF ADMISSION: 01/24/2019 DATE OF DISCHARGE: 01/27/2019 FINAL DIAGNOSES: 1. Choledocholithiasis. 2. Cholelithiasis. 3. Asymptomatic severe bradycardia. PROCEDURES: ERCP on 01/24/2019, laparoscopic cholecystectomy on 01/25/2019 and Cardiology evaluation. HISTORY: MsKayla HISTORY: Ms. Betancourt is a 53-year-old woman who presented to the emergency room with unrelenting upper abdominal pain. She was found to have elevated LFTs and dilated common bile duct. She was admitted to the hospital and the following morning, her LFTs had risen further, so she was taken for ERCP with sphincterotomy and stone extraction. She tolerated the procedure well, but postprocedurally, her heart rate dropped into the 30s. She was minimally symptomatic and has a resting heart rate in the 50s, but a cardiology evaluation was performed. She was deemed to be reasonable risk to proceed with laparoscopic cholecystectomy and she had this performed the following day without event. Postoperatively, she was kept an extra day due to some abdominal cramping and severe pain, which improved with muscle relaxants. Her LFTs came down and she was able to ambulate and tolerate her diet and her pain was controlled on muscle relaxants and tramadol. DISCHARGE INSTRUCTIONS: She was discharged home with instructions to avoid heavy lifting for 2 weeks and to return to the [facility] in 2 weeks' time. DISCHARGE MEDICATIONS: Flexeril and tramadol. Job ID: [id number]
== END 2019-01-27 12:15 | disposition home or self-care (01) | DRG 418 ==
LOC: SCSER 20:50 → SURG B 01-24 00:08 → 2NO 01-24 20:38
PROVIDERS: ADMIT Surgery; ATTEND Surgery
PROC: 0FC98ZZ Extirpation of Matter from Common Bile Duct, Via Natural or Artificial Opening Endoscopic (ICD-10-PCS; 2019-01-24)
PROC: 0FT44ZZ Resection of Gallbladder, Percutaneous Endoscopic Approach (ICD-10-PCS; principal; 2019-01-25)
DX: K80.70 Calculus of gallbladder and bile duct without cholecystitis without obstruction (principal); I97.191 Other postprocedural cardiac functional disturbances following other surgery; E03.9 Hypothyroidism, unspecified; E78.5 Hyperlipidemia, unspecified; I10 Essential (primary) hypertension; E66.9 Obesity, unspecified; Z90.710 Acquired absence of both cervix and uterus; Z90.49 Acquired absence of other specified parts of digestive tract; Z68.38 Body mass index [BMI] 38.0-38.9, adult; Y83.8 Other surgical procedures as the cause of abnormal reaction of the patient, or of later complication, without mention of misadventure at the time of the procedure
CPT/HCPCS: 36415; 74330; 76705; 80053; 83690; 84439; 84443; 84481; 84484; 85025; 88304; 93005; 93010; 93306; 96374; 96375; J0461; J1100; J1610; J2001; J2270; J2405; J2543; J2704; J3010; J3490; Q9961; S0028

== ENCOUNTER 2019-03-11 15:32 | Outpatient (CLI) | payer OTHER | END 2019-03-11 15:33 | disposition home or self-care (01) | LOC: DTY/OP 15:32 | PROVIDERS: ATTEND Surgery | DX: K80.70 Calculus of gallbladder and bile duct without cholecystitis without obstruction (principal); Z90.49 Acquired absence of other specified parts of digestive tract | CPT/HCPCS: 97802 ==